=== PATIENT | female | born 1975 | race Caucasian/White ===

== ENCOUNTER → 2023-11-07 14:55 | Outpatient (REF) | payer BC, SELFPAY | LOC: HWRCS 14:55 | PROVIDERS: ATTENDING PHYSICIAN Internal Medicine Cardiovascular Disease; FAMILY PHYSICIAN Nurse Practitioner Adult Health | DX: I42.8 Other cardiomyopathies (principal) | CPT/HCPCS: 93306 ==

== ENCOUNTER → 2024-03-31 14:23 | Outpatient (REF) | payer BC, SELFPAY | LOC: WDC 14:23 | PROVIDERS: ATTENDING PHYSICIAN Obstetrics & Gynecology; FAMILY PHYSICIAN Nurse Practitioner Adult Health | DX: Z12.31 Encounter for screening mammogram for malignant neoplasm of breast (principal) | CPT/HCPCS: 77063; 77067 ==

== ENCOUNTER → 2025-04-03 11:10 | Outpatient (REF) | payer BC, SELFPAY | LOC: WDC 11:10 | PROVIDERS: ATTENDING PHYSICIAN Obstetrics & Gynecology | DX: Z12.31 Encounter for screening mammogram for malignant neoplasm of breast (principal) | CPT/HCPCS: 77063; 77067 ==